=== PATIENT | male | born 1950 | race Caucasian/White ===

== ENCOUNTER 2023-11-30 14:51 | Observation (INO) ==
[2023-11-30 17:20] LABS: Hematocrit 47.3 % (38-53); Hemoglobin 15.5 g/dL (13.2-16.3); Mean Corpuscular Hemoglobin 27.8 pg (27-33); Mean Corpuscular Hgb Conc 32.8 g/dL (31-36); Mean Corpuscular Volume 84.7 fL (80-97); Mean Platelet Volume 8.3 fL (7.5-11.2); Platelet Count 264 10^3/uL (150-450); Red Blood Count 5.59 10^6/uL (4.06-5.63); Red Cell Distribution Width 15.1 % (12-17); White Blood Count 11.5 10^3/uL (3.6-10.2)
[2023-11-30] MEDS ORDERED: Albuterol HFA INHALER 8 gm MDI INH PRN (17:20)
[2023-11-30 17:53] LABS: ABS Basophils 0.1 10^3/uL (0.0-0.1); ABS Eosinophils 0.2 10^3/uL (0.0-0.5); ABS Lymphocytes 2.2 10^3/uL (1.0-4.8); ABS Monocytes 0.9 10^3/uL (0.0-1.1); ABS Neutrophils 8.1 10^3/uL (1.5-7.6); Eosinophil % 1.4 %; RBC Morphology Normal (Normal)
[2023-11-30 17:55] LABS: Calcium 9.8 mg/dL (8.6-10.3); Creatinine, Serum 1.22 mg/dL (0.67-1.17); Potassium 3.9 mmol/L (3.5-5.0); eGFR CKD-EPI 62.2 (>60)
[2023-11-30] MEDS: Potassium Chlor 20 meq TAB.ER PO SCH (20:03)
[2023-11-30] MEDS: Potassium Chlor 10 meq TAB PO ONE (20:04)
[2023-11-30] MEDS: Mometasone/Formoter 200/5 MDI INH SCH (20:43)
[2023-12-01 05:41] LABS: ABS Basophils 0.1 10^3/uL (0.0-0.1); ABS Eosinophils 0.2 10^3/uL (0.0-0.5); ABS Lymphocytes 2.6 10^3/uL (1.0-4.8); ABS Monocytes 0.9 10^3/uL (0.0-1.1); ABS Neutrophils 6.6 10^3/uL (1.5-7.6); ABS Nucleated RBC 0.01 10^3/ul; Eosinophil % 1.9 %; Hematocrit 47.4 % (38-53); Hemoglobin 15.9 g/dL (13.2-16.3); Lymphocyte % 25.1 %; Mean Corpuscular Hemoglobin 28.2 pg (27-33); Mean Corpuscular Hgb Conc 33.6 g/dL (31-36); Mean Corpuscular Volume 84.1 fL (80-97); Mean Platelet Volume 8.5 fL (7.5-11.2); Nucleated Red Blood Cells % 0.1 %/100WBC (0.0-0.8); Platelet Count 258 10^3/uL (150-450); Red Blood Count 5.64 10^6/uL (4.06-5.63); Red Cell Distribution Width 14.8 % (12-17); White Blood Count 10.3 10^3/uL (3.6-10.2)
[2023-12-01 06:13] LABS: Calcium 9.6 mg/dL (8.6-10.3); Creatinine, Serum 1.11 mg/dL (0.67-1.17); Magnesium 2.1 mg/dL (1.9-2.7); Potassium 4.1 mmol/L (3.5-5.0); eGFR CKD-EPI 69.7 (>60)
[2023-12-01] MEDS: Metoprolol Tartrate 5 mg VIAL 5 ml VIAL (1 mg/ml) IV PRN (14:35)
[2023-12-01] MEDS: Digoxin IV 0.5 MG/2 ML AMP (0.25 MG/ML) IV SLOW PU ONE (16:09)
[2023-12-01] MEDS ORDERED: fentaNYL 100 mcg/2 ml 50 MCG/ML VIAL ONE (16:33)
[2023-12-01] MEDS ORDERED: Flumazenil 0.5 mg/5 ml 0.1 MG/ML 5 ml VIAL ONE (16:33)
[2023-12-01] MEDS ORDERED: Naloxone 0.4 mg VIAL 0.4 mg/ml 1 ml VIAL ONE (16:33)
[2023-12-01] MEDS ORDERED: Midazolam 5 mg/5 ml VIAL 1 mg/ml 5 ml VIAL (5 mg) ONE (16:33)
[2023-12-01] MEDS ORDERED: Phenylephrine 40 mcg/mL 10mL (400mcg) SYRINGE ONE (16:34)
[2023-12-01] MEDS ORDERED: Naloxone 0.4 mg VIAL 0.4 mg/ml 1 ml VIAL IV PUSH PRN (16:48)
[2023-12-01] MEDS ORDERED: Flumazenil 0.5 mg/5 ml 0.1 MG/ML 5 ml VIAL IV PRN (16:48)
[2023-12-01] MEDS: Midazolam 10 mg/10 ml VIAL 1 mg/ml 10 ml VIAL (10 mg) IV SLOW PU ONE (17:17)
[2023-12-01] MEDS: fentaNYL 100 mcg/2 ml 50 MCG/ML VIAL IV SLOW PU ONE (17:17)
[2023-12-01] MEDS: NS 0.9% 1000 ml BAG 1,000 ML IV ONE (17:17)
[2023-12-02 07:42] LABS: Creatinine, Serum 1.07 mg/dL (0.67-1.17); eGFR CKD-EPI 72.8 (>60)
[2023-12-02 09:00] LABS: Magnesium 2.1 mg/dL (1.9-2.7)
[2023-12-02 09:52] VITALS: BP 127/81
== END 2023-12-02 12:56 | disposition home or self-care (01) ==
LOC: SUATTDRO 16:15 → INTOOBSV 16:15 → MEDTELE 16:15
PROVIDERS: ADMIT Internal Medicine; ATTEND Hospitalist